=== PATIENT | male | born 1960 | race Caucasian/White ===

== ENCOUNTER → 2017-07-26 | Outpatient (CLI) | payer OTHER ==
[~2017-07-26] MED LIST: ALPR0.5T PO; FLUT16SP2 NS; IOHEXOL 240 MG/ML 50ML VIAL. PO ONE; IOHEXOL 300 MG/ML 75 ML VIAL. IV ONE; MOME45CR2 TP; MULT-245 PO; OLME1TAB25 PO; PHEN37.599 PO; VERA240T72 PO
[2017-07-26 13:22] LABS: BASO % 0 % (0-3); EOS % 0 % (0-3); HEMATOCRIT 51.9 % (39.0-53.0); HEMOGLOBIN 17.7 g/dL (13.0-17.5); LYMPH # 0.4 x10^3/uL (1.0-4.8); LYMPH % 4 % (24-48); MEAN CORPUSCULAR HEMOGLOBIN 28 pg (25-35); MEAN CORPUSCULAR HGB CONC 34 g/dL (31-37); MEAN CORPUSCULAR VOLUME 84 fL (79-100); MONO # 1.2 x10^3/uL (0.0-1.1); MONO % 10 % (0-9); NEUT % 86 % (31-73); PLATELET COUNT 210 x10^3/uL (140-400); RED BLOOD COUNT 6.22 x10^6/uL (4.30-5.70); WHITE BLOOD COUNT 11.6 x10^3/uL (4.0-11.0)
[2017-07-26 13:41] LABS: ALBUMIN 3.7 g/dL (3.4-5.0); ALBUMIN/GLOBULIN RATIO 0.7 (1.0-1.7); CREATININE 2.5 mg/dL (0.7-1.3); GFR 26.9; POTASSIUM 3.9 mmol/L (3.5-5.1); TOTAL BILIRUBIN 1.5 mg/dL (0.2-1.0); TOTAL PROTEIN 8.7 g/dL (6.4-8.2)
[2017-07-26 14:29] LABS: SEDIMENTATION RATE 24 (0-15)
--- NOTE | 2017-07-26 15:36 | RAD ---
CT of the abdomen and pelvis without contrast, 07/26/2017: History: Left lower quadrant pain Noncontrast scans were obtained as requested. There is mild left hydronephrosis. There is moderate left perinephric and parapelvic edema. There are fluid collections along the course of the left ureter extending predominantly into the posterior pararenal space along the left iliopsoas musculature. This fluid obscures a portion of the left ureter. The left ureter is mildly dilated. There is a 4 mm obstructing calculus in the distal left ureter near the ureterovesical vesicle junction. The periureteral and parapelvic fluid is presumably secondary to urine extravasation from high grade distal ureteral obstruction. No intrarenal calculi are seen. The right renal collecting system and right ureter are unremarkable. Mild diffuse bladder wall thickening is present. There is mild streaky atelectasis and/or scarring in the right lung base. The liver is of lower than normal density compatible with fatty change. Patchy areas of mild focal fatty sparing are noted. The gallbladder is unremarkable. No pancreatic abnormality is seen. The abdominal aorta is unremarkable. No abdominal or pelvic adenopathy is seen. There are scattered colonic diverticula. Mild streaky inflammation in the paracolic fat adjacent to the descending colon probably arises from the left renal pathology rather than the colon. The bowel loops are not dilated. No free air is evident in the abdomen or pelvis. Moderate degenerative disc disease is present at L5-S1. IMPRESSION: 1. 4 mm obstructing calculus in the distal left ureter near the ureterovesical junction with perinephric edema and moderate periureteral fluid collections compatible with urine extravasation due to high-grade obstruction. A component of infection cannot be excluded. 2. Mild diffuse bladder wall thickening raising the possibility of cystitis. 3. Colonic diverticulosis. 4. Moderate hepatic steatosis. PQRS Compliance Statement: One or more of the following individualized dose reduction techniques were utilized for this examination: 1. Automated exposure control 2. Adjustment of the mA and/or kV according to patient size 3. Use of iterative reconstruction technique
== END | disposition home or self-care (01) ==
LOC: PMG 12:34
PROVIDERS: ATTEND Physician Assistant
DX: K57.30 Diverticulosis of large intestine without perforation or abscess without bleeding (principal); K76.0 Fatty (change of) liver, not elsewhere classified; N13.2 Hydronephrosis with renal and ureteral calculous obstruction; M51.37 Other intervertebral disc degeneration, lumbosacral region; R60.0 Localized edema
CPT/HCPCS: 36415; 74176; 80053; 82150; 83690; 85025; 85651

== ENCOUNTER → 2017-08-02 | Outpatient (CLI) | payer OTHER ==
[~2017-08-02] MED LIST changes: -IOHEXOL 240 MG/ML 50ML VIAL. PO ONE; -IOHEXOL 300 MG/ML 75 ML VIAL. IV ONE
--- NOTE | 2017-08-02 16:01 | RAD ---
Renal ultrasound with deep Doppler, 08/02/2017: History: Hypertension The right kidney measures 11.0 cm in length while the left kidney measures 10.9 cm. There is no evidence of hydronephrosis or a renal mass. The renal parenchymal echogenicity is within normal limits. Duplex examination of the main renal arteries was attempted including grayscale, color flow and spectral Doppler analysis. The peak systolic velocity in the proximal left renal artery is 124 cm/s. The proximal right renal artery is obscured by overlying bowel. The peak systolic velocity in the mid right main renal artery is 153 cm/s. No high velocity or parvus/tardus phenomena is seen in either main renal artery to suggest significant renal artery stenosis. IMPRESSION: 1. No significant renal abnormality is detected. 2. No duplex evidence of significant renal artery stenosis, although the origin of the right renal artery was obscured by overlying bowel.
== END | disposition home or self-care (01) ==
LOC: US 08:44
PROVIDERS: ATTEND Physician Assistant
DX: I10 Essential (primary) hypertension (principal)
CPT/HCPCS: 76770

== ENCOUNTER → 2021-09-03 | Outpatient (CLI) | payer OTHER ==
[~2021-09-03] MED LIST changes: -MOME45CR2 TP; +MOME45CR3 TP; +VERA240T45 PO; -VERA240T72 PO
--- NOTE | 2021-09-03 14:41 | RAD ---
3 views left knee without comparison for pain and inflammation, no known injury. FINDINGS: There is no fracture, dislocation, or acute osseous abnormalities. There is mild lateral tr anslation of the tibia relative to the fibula. Joint spaces are well-maintained. Suprapatellar joint effusion is suspected. IMPRESSION: 1. Suprapatellar joint effusion with no acute osseous abnormality. Mild lateral translation of the ti gabriel is present which may signify internal drainage. Electronically signed by: Pablo Dick MD (09/03/2021 2:39 PM) [id number]
== END ==
LOC: RAD 09:10
PROVIDERS: ATTEND Physician Assistant Medical
DX: M25.462 Effusion, left knee (principal); M25.862 Other specified joint disorders, left knee
CPT/HCPCS: 73562